=== PATIENT | female | born 1985 | race Caucasian/White ===

== ENCOUNTER 2017-06-08 19:30 | Inpatient (IN) | payer OTHER ==
[2017-06-08] MEDS ORDERED: AMPICILLIN - 2 GM in SODIUM CHLORIDE 100 ML IVPB ONE (20:30)
[2017-06-08] MEDS ORDERED: PROMETHAZINE HCL 25 MG/1 ML VIAL IVPUSH ONE (20:34)
[2017-06-08] MEDS ORDERED: BUTORPHANOL TARTRATE 1 MG/ML VIAL IVPUSH PRN (20:34)
[2017-06-08 20:38] VITALS: BMI 25.9
[2017-06-08] MEDS ORDERED: DEXTROSE 5%-LACTATED RINGERS 1,000 ML IV SCH (20:45)
[2017-06-08] MEDS ORDERED: OXYTOCIN 15 UNITS/ LR 250 ML 15 UNIT/250 ML INFUS.BAG IVPB SCH (20:45)
--- NOTE | 2017-06-08 20:47 | HP ---
Past Medical History - Primary Care Physician PCP:: Shaun Kisre - Admission Chief Complaint: 41 weeks, labor History of Present Illness: 32 yo f edc by sono 06/02. c/o contraction, mild , no rom, no bleeding , cx 3 cm 80 vx -2 mi, fhr cat 1, irregular contraction. in view irregular mild contraction ,pitocin discussed , rba expalined History Source: Patient Limitations to Obtaining History: Language Barrier - Past Medical History ...: 2 ...Para: 1 ...Term: 1 ...: 0 ... Weeks Gestation by Dates: 40.6 ...EDC by Dates: 06/02/17 ...EDC by Sono: 06/02/17 - Past Surgical History Hx Myomectomy: No Hx Transabdominal Cerclage: No - Smoking History Smoking history: Never smoked Have you smoked in the past 12 months: No - Alcohol/Substance Use Hx Alcohol Use: No - Social History Usual Living Arrangement: Yes: With Spouse History of Recent Travel: No Home Medications - Allergies Allergies/Adverse Reactions: Allergies Allergy/AdvReac Type Severity Reaction Status Date / Time No Known Allergies Allergy Verified 06/05/17 12:13 - Home Medications Home Medications: Ambulatory Orders Vitamins (Sjr) - 1 tab PO DAILY 11/11/13 Review of Systems - Review of Systems Constitutional: reports: No Symptoms Eyes: reports: No Symptoms HENT: reports: No Symptoms Neck: reports: No Symptoms Respiratory: reports: No Symptoms Gastrointestinal: reports: No Symptoms Genitourinary: reports: No Symptoms Breasts: reports: No Symptoms Reported Musculoskeletal: reports: No Symptoms Integumentary: reports: No Symptoms Neurological: reports: No Symptoms Endocrine: reports: No Symptoms Hematology/Lymphatic: reports: No Symptoms Psychiatric: reports: No Symptoms Physical Exam - Maternity Constitutional: Yes: Well Nourished, No Distress, Calm Eyes: Yes: WNL, Conjunctiva Clear, EOM Intact HENT: Yes: WNL, Atraumatic, Normocephalic Neck: Yes: WNL, Supple, Trachea Midline Cardiovascular: Yes: WNL, Regular Rate and Rhythm Breast(s): Yes: WNL - Abdominal Exam/OB Fundal Height: 40 Number of Fetuses: Single Presentation: Vertex Contractions: Yes Regularity: Irregular Intensity: Mild/Mod Monitor Mode: External Heart Rate Location: [facility] Category: I Accelerations: Uniform Decelerations: None - Vaginal Exam/OB Vaginal Bleediing: No Speculum Exam: No Dilatation (cm): 3 Effacement (%): 60 Amniotic Membrane Status: Intact Presentation: Vertex/Position Station: -2 - Physical Exam Musculoskeletal: Yes: WNL Extremities: Yes: WNL Edema: LLE: Trace, RLE: Trace Deep Tendon Reflex Grade: Normal +2 ...Motor Strength: WNL Psychiatric: Yes: Alert Hemorrhage Risk Assessment - Risk Factors Medium Risk Factors: Yes: None High Risk Factors: Yes: None Risk Score: 1 Risk Level: Medium Risk Problem List - Problems (1) Post term over 40 weeks Code(s): O48.0 - POST-TERM (2) Labor established Code(s): SCL0392 - Assessment/Plan admit, fhm, pitocin stimulation. pain management
[2017-06-08 21:49] LABS: BASOPHIL 0.6 % (0-2.0); EOSINOPHIL 0.5 % (0-4.5); MCH 26.4 pg (25.7-33.7); MCHC 32.2 g/dl (32.0-36.0); MEAN PLT VOLUME 10.1 fl (7.5-11.1); NEUTROPHILS 68.1 % (42.8-82.8); PLATELET COUNT 275 K/MM3 (134-434); RDW 17.5 % (11.6-15.6); WHITE BLOOD COUNT 10.7 K/mm3 (4.0-10.0)
[2017-06-08 21:57] LABS: INR 0.94 (0.82-1.09); PROTHROMBIN TIME (PATIENT) 10.6 SEC (9.98-11.88)
[2017-06-08 21:59] LABS: ACTIVATED PTT 26.9 SECONDS (26.9-34.4)
[2017-06-08 22:24] LABS: ANION GAP 12 (8-16); CALCIUM 8.9 mg/dL (8.5-10.1); CO2 22 mmol/L (21-32); CREATININE 0.7 mg/dL (0.55-1.02); GLUCOSE,RANDOM 99 mg/dL (74-106)
--- NOTE | 2017-06-08 23:04 | PN ---
Progress Note (short form) - Note Progress Note: cx 4 cm 80 vx -1 mi, fhr cat 1, contraction q 3 min Problem List - Problems (1) Post term over 40 weeks Code(s): O48.0 - POST-TERM (2) Labor established Code(s): CYA4077 -
[2017-06-09] MEDS: AMPICILLIN - 1 GM in SODIUM CHLORIDE 100 ML IVPB SCH ×6 (00:28→22:25)
[2017-06-09] MEDS ORDERED: OXYTOCIN 20 UNITS in 0.9% NS 1000 ML INFUS.BAG IV ONE (05:15)
[2017-06-09] MEDS ORDERED: METHYLERGONOVINE MALEATE 0.2 MG/1 ML AMP IM PRN (05:32)
[2017-06-09] MEDS ORDERED: oxyCODONE HCL 5 MG TABLET PO PRN (05:32)
[2017-06-09] MEDS ORDERED: BENZOCAINE 28 GM HEMORRHOIDAL OINTMENT TP PRN (05:32)
[2017-06-09] MEDS ORDERED: BISACODYL 10 MG SUPP.RECT RC PRN (05:32)
[2017-06-09] MEDS ORDERED: BENZOCAINE 20% 57 GM BOTTLE TP PRN (05:32)
[2017-06-09 05:42] LABS: ARTERIAL BLOOD GAS BASE EXCESS -3.4 meq/l (-2-2); ARTERIAL BLOOD GAS HCO3 25.4 meq/L (22-26); ARTERIAL BLOOD GAS pH 7.25 (7.35-7.45)
[2017-06-09] MEDS ORDERED: D5W-LR W/ 20 UNITS OXYTOCIN 20 UNIT/1,000 ML INFUS.BAG IV SCH (05:45)
[2017-06-09 05:49] LABS: PT. ON O2? NO
[2017-06-09 05:52] LABS: ARTERIAL BLOOD GAS PO2 14.4 mmHg (80-100)
[2017-06-09 05:53] LABS: ARTERIAL BLD GAS O2 SATURATION 14.8 % (90-98.9)
[2017-06-09 05:59] LABS: VENOUS PH 7.33 (7.32-7.42)
[2017-06-09 06:00] LABS: VENOUS BLOOD GAS HCO3 21.6 meq/L (19-25)
[2017-06-09] MEDS: IBUPROFEN 600 MG TABLET (FP) PO PRN ×2 (06:30→10:40)
[2017-06-09] MEDS: ACETAMINOPHEN 325 MG TABLET (FP) PO PRN ×2 (06:30→10:39)
[2017-06-09] MEDS ORDERED: OXYTOCIN 20 UNITS in 0.9% NS 20 UNIT/1,000 ML INFUS.BAG IV SCH (08:15)
[2017-06-09] MEDS: PRENATAL VITAMINS W/ FOLIC ACID TABLET (FP) PO SCH (09:51)
[2017-06-09] MEDS: FERROUS SO4 325 MG TABLET (FP) PO SCH ×2 (09:51→22:23)
[2017-06-09] MEDS: WITCH HAZEL 50% (TUCKS) 40 PAD/JAR PAD TP PRN (10:41)
[2017-06-10 08:26] LABS: EOSINOPHIL 0.7 % (0-4.5); MCH 26.1 pg (25.7-33.7); MCHC 31.6 g/dl (32.0-36.0); MEAN CELL VOLUME 82.6 fl (80-96); MEAN PLT VOLUME 9.8 fl (7.5-11.1); NEUTROPHILS 62.2 % (42.8-82.8); PLATELET COUNT 253 K/MM3 (134-434); RDW 17.6 % (11.6-15.6); WHITE BLOOD COUNT 14.2 K/mm3 (4.0-10.0)
[2017-06-10] MEDS: PRENATAL VITAMINS W/ FOLIC ACID TABLET (FP) PO SCH (09:19)
[2017-06-10] MEDS: FERROUS SO4 325 MG TABLET (FP) PO SCH ×2 (09:19→21:30)
[2017-06-10] MEDS: ACETAMINOPHEN 325 MG TABLET (FP) PO PRN (09:19)
[2017-06-10] MEDS: IBUPROFEN 600 MG TABLET (FP) PO PRN (09:19)
--- NOTE | 2017-06-10 09:51 | PN ---
Post Progress Note - Subjective Subjective: 32 yo Para 2 status post normal vaginal delivery seen and evaluated. Doing well, no complaints. Post Day: 1 Type of Delivery: Vital Signs: Vital Signs Temperature 98.9 F 06/10/17 08:18 Pulse Rate 66 06/10/17 08:18 Respiratory Rate 20 06/10/17 08:18 Blood Pressure 101/65 06/10/17 08:18 O2 Sat by Pulse Oximetry (%) 98 06/09/17 06:55 Breast Exam: Yes: Soft Uterus: Yes: Fundus Firm Abdomen/GI: Yes: Abdomen soft, Tolerating PO Lochia: Yes: Rubra Lochia, amount: Moderate Extremities: Yes: Calves non-tender Activity: Ambulating - Labs Labs: CBC WBC 14.2 K/mm3 (4.0-10.0) H D 06/10/17 07:45 RBC 4.11 M/mm3 (3.60-5.2) 06/10/17 07:45 Hgb 10.7 GM/dL (10.7-15.3) 06/10/17 07:45 Hct 33.9 % (32.4-45.2) 06/10/17 07:45 MCV 82.6 fl (80-96) 06/10/17 07:45 MCH 26.1 pg (25.7-33.7) 06/10/17 07:45 MCHC 31.6 g/dl (32.0-36.0) L 06/10/17 07:45 RDW 17.6 % (11.6-15.6) H 06/10/17 07:45 Plt Count 253 K/MM3 (134-434) 06/10/17 07:45 MPV 9.8 fl (7.5-11.1) 06/10/17 07:45 Neutrophils % 62.2 % (42.8-82.8) 06/10/17 07:45 Lymphocytes % 29.9 % (8-40) D 06/10/17 07:45 Monocytes % 6.2 % (3.8-10.2) 06/10/17 07:45 Eosinophils % 0.7 % (0-4.5) 06/10/17 07:45 Basophils % 1.0 % (0-2.0) 11/18/17 07:45 Assessment/Plan Status post vaginal delivery Stable Continue routine care
[2017-06-10] MEDS ORDERED: DIPHTH,PERTUSS(ACELL),TET 0.5 ML DISP.SYRIN IM ONE (10:00)
[2017-06-10] MEDS ORDERED: SENNOSIDES/DOCUSATE COMBO (SENNA PLUS) TABLET (UD) PO PRN (22:00)
[2017-06-11] MEDS: ACETAMINOPHEN 325 MG TABLET (FP) PO PRN (05:33)
[2017-06-11] MEDS: IBUPROFEN 600 MG TABLET (FP) PO PRN (05:34)
--- NOTE | 2017-06-11 06:13 | DS ---
Physical Exam-CONTACT CLERK Vital Signs: Vital Signs Temperature 98.1 F 06/10/17 22:00 Pulse Rate 70 06/10/17 22:00 Respiratory Rate 18 06/10/17 22:00 Blood Pressure 100/68 06/10/17 22:00 O2 Sat by Pulse Oximetry (%) 98 06/09/17 06:55 Constitutional: Yes: Well Nourished Eyes: Yes: Conjunctiva Clear HENT: Yes: Atraumatic Neck: Yes: Supple Cardiovascular: Yes: Regular Rate and Rhythm Respiratory: Yes: Regular Gastrointestinal: Yes: Normal Bowel Sounds External Genitalia: Yes: Normal Vaginal Exam: Yes: Normal Cervix: Yes: Normal Uterus: Yes: Firm ....Post : Yes: Uterus firm, Moderate lochia serosa Breast(s): Yes: WNL Neurological: Yes: Alert, Oriented ...Motor Strength: WNL Psychiatric: Yes: Alert, Oriented Labs: CBC, BMP 06/10/17 07:45 06/08/17 20:55 Delivery - Delivery Type of Anesthesia: Local Episiotomy/Laceration: Midline EBL (cc): 300 Delivery, Single - Stages of Labor Date 1st Stage Initiatied: 06/08/17 Time 1st Stage Initiated: 17:00 Date 2nd Stage Initiated: 06/09/17 Time 2nd Stage Initiated: 04:45 Date of Delivery: 06/09/17 Time of Delivery: 05:08 Time Placenta Delivered: 05:15 - 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 - 1 Minute Total Score: 8 5 Minutes Total Score: 9 - [place] Feeding Plan Initial Plan: Exclusive throughout hospitalization Discharge Summary Reason For Visit: INDUCTION OF LABOR Current Active Problems Labor established (Acute) Post term over 40 weeks (Acute) Procedures: Principal: Normal spontaneous vaginal delivery Hospital Course: Routine care Condition: Good - Instructions Diet, Activity, Other Instructions: Regular diet No douching, no sexual intercourse x 6 weeks F/U in clinic in 6 weeks Disposition: HOME - Home Medications Comprehensive Discharge Medication List: Ambulatory Orders Vitamins (Sjr) - 1 tab PO DAILY 11/11/13
[2017-06-11] MEDS: WITCH HAZEL 50% (TUCKS) 40 PAD/JAR PAD TP PRN (06:26)
[2017-06-11 08:16] VITALS: BP 94/50; PULSE 80; TEMP 97.8
[2017-06-11] MEDS: FERROUS SO4 325 MG TABLET (FP) PO SCH (09:30)
[2017-06-11] MEDS: PRENATAL VITAMINS W/ FOLIC ACID TABLET (FP) PO SCH (09:30)
== END 2017-06-11 14:00 | disposition home or self-care (01) | DRG 560 ==
LOC: JLDR 19:30 → J3W 06-09 08:18
PROVIDERS: ADMIT Obstetrics & Gynecology; ATTEND Obstetrics & Gynecology
PROC: 10E0XZZ Delivery of Products of Conception, External Approach (ICD-10-PCS; principal; 2017-06-09)
PROC: 0W8NXZZ Division of Female Perineum, External Approach (ICD-10-PCS; 2017-06-09)
DX: O48.0 Post-term pregnancy (principal); Z3A.40 40 weeks gestation of pregnancy; Z37.0 Single live birth
CPT/HCPCS: 36415; 36600; 59409; 80048; 82803; 85025; 85610; 85730; 86593; 86850; 86900; 86901; 90715

== ENCOUNTER 2018-10-15 21:28 | Emergency (ER) | payer OTHER ==
[2018-10-15 21:47] VITALS: BP 107/61; PULSE 73; TEMP 97.4; BMI 23.5
--- NOTE | 2018-10-15 23:12 | PDOC ---
Attending Attestation - HPI HPI: 10/15/18 23:17 The patient is a 33 YOF with no PMH who presents with a headache and 1 episode of NB, NB vomit today and right flank pain for the past week. Patient is unsure when her last LMP was, possibly in July. She does not know if she is . Allergies: NKDA Past Surgeries: None reported Social Hx: No reported alcohol, drug or cigarette use. PCP: Dr. Sales - Physicial Exam PE: 10/15/18 23:22 Agree with resident's exam. <Didi Martinez - Last Filed: 10/15/18 23:17> - Resident Resident Name: Marco Hassan - ED Attending Attestation I have performed the following: I have examined & evaluated the patient, The case was reviewed & discussed with the resident, I agree w/resident's findings & plan - Medical Decision Making 10/16/18 01:09 Live intrauterine confirmed with bedside ultrasound Patient was advised to stay for further testing, she states she feels fine and is signing out AGAINST MEDICAL ADVICE She was advised to stay for further imaging regarding gestation and flank pain as well as headache Hebrew translation was provided <Lizeth Grijalva - Last Filed: 10/16/18 01:11>
[2018-10-15] MEDS ORDERED: METOCLOPRAMIDE HCL INJECTION 10 MG/2 ML VIAL IVPUSH ONE (23:15)
[2018-10-15] MEDS ORDERED: METOCLOPRAMIDE HCL INJECTION 10 MG/2 ML VIAL ONE (23:37)
[2018-10-15 23:53] LABS: URINE APPEARANCE CLEAR; URINE BILIRUBIN NEGATIVE (NEGATIVE); URINE COLOR YELLOW; URINE GLUCOSE (UA) NEGATIVE (NEGATIVE); URINE KETONE 1+ (NEGATIVE); URINE LEUK ESTERASE NEGATIVE (NEGATIVE); URINE NITRITE NEGATIVE (NEGATIVE); URINE PROTEIN NEGATIVE (NEGATIVE)
[2018-10-15 23:55] LABS: BASO % 0.8 % (0-2.0); EOS % 0.8 % (0-4.5); HEMATOCRIT 39.7 % (32.4-45.2); HEMOGLOBIN 13.7 GM/dL (10.7-15.3); LYMPH % 23.8 % (8-40); MCH 29.4 pg (25.7-33.7); MCHC 34.4 g/dl (32.0-36.0); MEAN CELL VOLUME 85.3 fl (80-96); MEAN PLT VOLUME 9.2 fl (7.5-11.1); NEUT % 68.6 % (42.8-82.8); PLATELET COUNT 198 K/MM3 (134-434); RBC 4.65 M/mm3 (3.60-5.2); RDW 13.5 % (11.6-15.6); WHITE BLOOD COUNT 11.6 K/mm3 (4.0-10.0)
[2018-10-16 00:30] LABS: ALBUMIN 3.9 g/dl (3.4-5.0); ALK PHOS 55 U/L (45-117); ANION GAP 8 MMOL/L (8-16); BILIRUBIN,TOTAL 0.9 mg/dL (0.2-1); BLOOD UREA NITROGEN 11 mg/dL (7-18); CALCIUM 9.5 mg/dL (8.5-10.1); CHLORIDE 101 mmol/L (98-107); CO2 26 mmol/L (21-32); CREATININE 0.5 mg/dL (0.55-1.3); GLUCOSE,RANDOM 89 mg/dL (74-106); LIPASE 111 U/L (73-393); POTASSIUM 3.8 mmol/L (3.5-5.1); SGOT/AST 10 U/L (15-37); SGPT/ALT 24 U/L (13-61); SODIUM 135 mmol/L (136-145); TOT PROT 7.5 g/dl (6.4-8.2)
--- NOTE | 2018-10-16 01:16 | PDOC ---
History of Present Illness - General Chief Complaint: Headache Stated Complaint: HEADACHES Time Seen by Provider: 10/15/18 23:08 - History of Present Illness Initial Comments: 10/16/18 01:09 33f with no pmh G3L2 currently presents with left flank pain for the past week and headache today with multiple episode of vomiting. LMP unknown, "maybe July". No dysuria, no change in vision, no dizziness. 10/16/18 01:11 Hasn't seen a OBGYN due to not having insurance. Past History - Past Medical History Allergies/Adverse Reactions: Allergies Allergy/AdvReac Type Severity Reaction Status Date / Time No Known Allergies Allergy Verified 10/15/18 21:47 Home Medications: Ambulatory Orders Vitamins (Sjr) - 1 tab PO DAILY 11/11/13 Asthma: No Cancer: No Cardiac Disorders: No COPD: No Diabetes: No HTN: No Seizures: No Thyroid Disease: No - Suicide/Smoking/Psychosocial Hx Smoking History: Never smoked Have you smoked in the past 12 months: No Information on smoking cessation initiated: No Hx Alcohol Use: No Drug/Substance Use Hx: No Hx Substance Use Treatment: No Review of Systems - Review of Systems Able to Perform ROS?: Yes Is the patient limited Cymraes proficient: No Constitutional: No: Symptoms Reported HEENTM: No: Symptoms Reported Respiratory: No: Symptoms reported Cardiac (ROS): No: Symptoms Reported ABD/GI: Yes: See HPI : No: Symptoms Reported Musculoskeletal: No: Symptoms Reported *Physical Exam - Vital Signs Last Vital Signs Temp Pulse Resp BP Pulse Ox 97.4 F L 73 18 107/61 100 10/15/18 21:44 10/15/18 21:44 10/15/18 21:44 10/15/18 21:44 10/15/18 21:44 - Physical Exam General Appearance: Yes: Nourished, Appropriately Dressed. No: Apparent Distress HEENT: positive: EOMI, RAJAN Respiratory/Chest: positive: Lungs Clear, Normal Breath Sounds. negative: Chest Tender, Respiratory Distress Cardiovascular: positive: Regular Rhythm, Regular Rate, S1, S2 Gastrointestinal/Abdominal: positive: Normal Bowel Sounds, Flat, Soft. negative : Tender Musculoskeletal: positive: Normal Inspection. negative: CVA Tenderness Extremity: positive: Normal Capillary Refill, Normal Inspection, Normal Range of Motion Integumentary: positive: Normal Color, Dry, Warm ED Treatment Course - LABORATORY CBC & Chemistry Diagram: 10/15/18 23:40 10/15/18 23:40 - ADDITIONAL ORDERS Additional order review: Laboratory Results 10/15/18 10/15/18 10/15/18 23:40 23:40 23:40 Sodium 135 L Potassium 3.8 Chloride 101 Carbon Dioxide 26 Anion Gap 8 BUN 11 Creatinine 0.5 L Creat Clearance w eGFR 142.98 Random Glucose 89 Calcium 9.5 Total Bilirubin 0.9 AST 10 L ALT 24 Alkaline Phosphatase 55 Total Protein 7.5 Albumin 3.9 Lipase 111 Serum , Qual Positive Urine Color Yellow Urine Appearance Clear Urine pH 5.0 Ur Specific [place] 1.031 Urine Protein Negative Urine Glucose (UA) Negative Urine Ketones 1+ H Urine Blood Negative Urine Nitrite Negative Urine Bilirubin Negative Urine Urobilinogen 1.0 Ur Leukocyte Esterase Negative 10/15/18 23:40 RBC 4.65 MCV 85.3 MCHC 34.4 RDW 13.5 D MPV 9.2 Neutrophils % 68.6 Lymphocytes % 23.8 D Monocytes % 6.0 Eosinophils % 0.8 Basophils % 0.8 - Medications Given in the ED: ED Medications Discontinued Medications Generic Name Dose Route Start Last Admin Trade Name Freq PRN Reason Stop Dose Admin Metoclopramide HCl 10 mg 10/15/18 23:15 10/15/18 23:50 Reglan Injection - IVPUSH 10/15/18 23:16 10 mg ONCE ONE Administration Medical Decision Making - Medical Decision Making 10/16/18 01:16 PAtient claiming to be asymptomatic now,. abdominal US: positive intrauterine . All other labs negative. Patient requesting to leave AMA. Coppersmith Helper used to let patient known of the risks. Wishes to leave and see her own obgyn herself. 10/16/18 01:32 10/16/18 01:32 *DC/Admit/Observation/Transfer Diagnosis at time of Disposition: Headache, - Discharge Dispostion Disposition: AGAINST MEDICAL ADVICE - Referrals Referrals: Florecita Sales CNM [Primary Care Provider] - - Patient Instructions - Post Discharge Activity
--- NOTE | 2018-10-16 09:19 | EKG ---
Test Reason : Blood Pressure : / mmHG Vent. Rate : 079 BPM Atrial Rate : 079 BPM P-R Int : 140 ms QRS Dur : 080 ms QT Int : 376 ms P-R-T Axes : 025 038 041 degrees QTc Int : 431 ms NORMAL SINUS RHYTHM WITH SINUS ARRHYTHMIA NORMAL ECG NO PREVIOUS ECGS AVAILABLE Confirmed by EHSAN JENNINGS MD ([id number]) on 10/16/2018 9:18:53 AM Referred By: Confirmed By:EHSAN JENNINGS MD
== END 2018-10-16 01:10 | disposition left against medical advice (07) ==
LOC: JER 21:28
PROC: 3E033GC Introduction of Other Therapeutic Substance into Peripheral Vein, Percutaneous Approach (ICD-10-PCS; principal; 2018-10-15)
DX: O26.899 Other specified pregnancy related conditions, unspecified trimester (principal); R51 Headache; Z3A.00 Weeks of gestation of pregnancy not specified
CPT/HCPCS: 36415; 80053; 81003; 83690; 84703; 85025; 93005; 93010; 96374; 99282-25

== ENCOUNTER 2019-05-24 17:10 | Inpatient (IN) | payer OTHER ==
[2019-05-24] MEDS ORDERED: ELECTROLYTE-148 SOLN 1,000 ML IV SCH (18:45)
--- NOTE | 2019-05-24 19:52 | HP ---
Past Medical History - Admission Chief Complaint: Uterine contractions History of Present Illness: 34yo @ 39.4wks here with uterine contractions. +ctx. No VB/LOF. +FM PNC @ [address] uncomplicated, GBS neg History Source: Patient Limitations to Obtaining History: No Limitations - Past Medical History ...: 3 ...Para: 2 ...Term: 1 ...: 1 ...LMP: 08/20/18 ... Weeks Gestation by Dates: 39.4 ...EDC by Dates: 05/27/19 ...EDC by Sono: 05/29/19 Heme/Onc: Yes: Anemia Infectious Disease: No: AIDS, C-Diff, Herpes Zoster, HIV, MRSA, STD's, Tuberculosis, VREF, Other Psych: No: Addictions, Anxiety, Bipolar, Depression, Panic, Psychosis, Schizophrenia, Other Musculoskeletal: No: Bursitis, Chronic low back pain, Hemiparesis, Hemiplegia, Osteoarthritis, Paraplegia, Other Rheumatology: No: Fibromyalgia, Gout, Lupus, Rheumatoid Arthritis, Sarcoidosis, Vasculitis, Other ENT: No: Allergic Rhinitis, Sinusitis, Other Endocrine: No: Felipe's Disease, Serena's Disease, Diabetes Insipidus, Diabetes Mellitus, Hyperparathyroidism, Hyperthyroidism, Hypothyroidism, Osteopenia, SIADH, Other Dermatology: No: Basal Cell, Cellulitis, Eczema, Melanoma, Psoriasis, Squamous Cell, Other - Past Surgical History Past Surgical History: Yes: None Hx Myomectomy: No Hx Transabdominal Cerclage: No - Smoking History Smoking history: Never smoked Have you smoked in the past 12 months: No - Alcohol/Substance Use Hx Alcohol Use: No History of Substance Use: reports: None - Social History Usual Living Arrangement: Yes: With Spouse Do you think of yourself as: Straight/Heterosexual ADL: Independent History of Recent Travel: No Home Medications - Allergies Allergies/Adverse Reactions: Allergies Allergy/AdvReac Type Severity Reaction Status Date / Time No Known Allergies Allergy Verified 10/15/18 21:47 - Home Medications Home Medications: Ambulatory Orders Vitamins (Sjr) - 1 tab PO DAILY 11/11/13 Iron 1 tab PO DAILY 05/24/19 Review of Systems - Review of Systems Constitutional: denies: No Symptoms, Chills, Diaphoresis, Fever, Lethargy, Loss of Appetite, Malaise, Night Sweats, Unintentional Wgt. Loss, Weakness, Other Cardiovascular: denies: No Symptoms, Chest Pain, Edema, Palpitations, Shortness of Breath, Other Respiratory: denies: No Symptoms, Cough, Exercise Intolerance, Hemoptysis, Orthopnea, PND, Snoring, SOB, SOB on Exertion, Wheezing, Other Gastrointestinal: denies: No Symptoms, Abdominal Pain, Bloating, Constipation, Diarrhea, Dysphagia, Indigestion, Melena, Nausea, Rectal Bleeding, Vomiting, Vomiting Blood, Other Physical Exam - Maternity Vital Signs: Vital Signs Temperature 97.9 F 05/24/19 18:10 Pulse Rate 80 05/24/19 18:10 Respiratory Rate 20 05/24/19 18:10 Blood Pressure 112/60 05/24/19 18:10 O2 Sat by Pulse Oximetry (%) - Abdominal Exam/OB Number of Fetuses: Single Presentation: Vertex Contractions: Yes Regularity: Regular Intensity: Mild Monitor Mode: External Category: I Accelerations: Non-Uniform Decelerations: None - Vaginal Exam/OB Vaginal Bleediing: No Speculum Exam: No Dilatation (cm): 6 Effacement (%): 60 Amniotic Membrane Status: Intact Presentation: Vertex/Position Station: -3 - Physical Exam Edema: No Imaging - Results Ultrasound: Report Reviewed Problem List - Problems (1) Uterine contractions Code(s): ZEL3544 - Assessment/Plan 34yo @ 39.4wks here in labor Admit to L&D NPO, IVFs GBS negative AROM/pitocin prn Cat I tracing Anticipate MARTINEZ Pimentel MD
--- NOTE | 2019-05-24 19:53 | PN ---
Progress Note, Labor Vaginal Exam #1 Labor Exam Date: 05/24/19 Labor Exam Time: 19:52 Heart Rate (range): Cat I Dilatation: 7-8 Effacement (%): 70 Amniotic Membrane Status: Intact Presentation: Vertex/Position Station: -3 Remarks: Pt still comfortable with contractions AROM, clears Cat I tracing Anticipate MARTINEZ Pimentel
[2019-05-24 20:23] VITALS: BMI 24.4
[2019-05-24 20:41] LABS: BASO % 0.6 % (0-2.0); EOS % 0.4 % (0-4.5); HEMATOCRIT 34.1 % (32.4-45.2); HEMOGLOBIN 11.4 GM/dL (10.7-15.3); LYMPH % 19.7 % (8-40); MCH 29.5 pg (25.7-33.7); MCHC 33.4 g/dl (32.0-36.0); MEAN CELL VOLUME 88.3 fl (80-96); MEAN PLT VOLUME 9.8 fl (7.5-11.1); MONO % 6.8 % (3.8-10.2); NEUT % 72.5 % (42.8-82.8); PLATELET COUNT 301 K/MM3 (134-434); RBC 3.86 M/mm3 (3.60-5.2); RDW 13.3 % (11.6-15.6); WHITE BLOOD COUNT 15.1 K/mm3 (4.0-10.0)
[2019-05-24] MEDS ORDERED: DEXTROSE 5%-LACTATED RINGERS 1,000 ML IV SCH (20:45)
[2019-05-24 20:50] LABS: INR 1.01 (0.83-1.09); PROTHROMBIN TIME (PATIENT) 11.9 SEC (9.7-13.0)
[2019-05-24 20:53] LABS: ACTIVATED PTT 26.9 SECONDS (25.2-36.5)
--- NOTE | 2019-05-24 20:54 | PN ---
Progress Note, Labor Vaginal Exam #2 Labor Exam Date: 05/24/19 Labor Exam Time: 20:54 Heart Rate (range): Cat I Dilatation: 9.5 Effacement (%): 100 Amniotic Membrane Status: Ruptured Station: -1 Remarks: Pt getting more uncomfortable Anterior Lip Will start pushing soon Anticipate MARTINEZ Pimentel MD
[2019-05-24 21:04] LABS: BLOOD UREA NITROGEN 12.2 mg/dL (7-18); CALCIUM 9.1 mg/dL (8.5-10.1); CREATININE 0.7 mg/dL (0.55-1.3); POTASSIUM 3.7 mmol/L (3.5-5.1)
[2019-05-24] MEDS ORDERED: OXYTOCIN 20 UNITS in 0.9% NS 20 UNIT/1,000 ML INFUS.BAG IV ONE (21:27)
[2019-05-24] MEDS ORDERED: LIDOCAINE HCL 1% PRESERVATIVE FREE - 30ML VIAL ONE (21:28)
[2019-05-24] MEDS: OXYTOCIN 20 UNITS in 0.9% NS 20 UNIT/1,000 ML INFUS.BAG IV SCH (21:50)
[2019-05-24] MEDS ORDERED: BENZOCAINE 28 GM HEMORRHOIDAL OINTMENT TP PRN (21:58)
[2019-05-24] MEDS ORDERED: METHYLERGONOVINE MALEATE 0.2 MG/1 ML AMP IM PRN (21:58)
[2019-05-24] MEDS ORDERED: BISACODYL 10 MG SUPP.RECT RC PRN (21:58)
[2019-05-24] MEDS ORDERED: BENZOCAINE 20% 57 GM BOTTLE TP PRN (21:58)
[2019-05-24] MEDS ORDERED: WITCH HAZEL 50% (TUCKS) 40 PAD/JAR PAD TP PRN (21:58)
--- NOTE | 2019-05-24 21:58 | PN ---
Delivery - Delivery Vaginal Delivery: Spontaneous Type of Anesthesia: Local Episiotomy/Laceration: Midline, 1st degree EBL (cc): 250 Delivery, Single - Stages of Labor Placenta: Yes: Spontaneous - Condition of Practice Director/Operator Catalyst Concentration Present: No Gender: Female Position: Left, OA - 1 Minute Total Score: 9 5 Minutes Total Score: 9 - Feeding Plan Initial Plan: Elected not to breastfeed exclusively throughout hospitalization Remarks - Remarks Remarks: of VFI from LOS position over intact perineum. No anesthesia. 39 week . Spontaneous delivery of anterior shoulder and body. placed on maternal abdomen. Cord clamped and cut. Weight pending to allow sufficient skin to skin. Apgars 9/9. Spontaneous delivery of intact placenta, 3VC. Fundus firm. Perineum inspected, first degree laceration noted. Lidocaine injected for anesthesia, repaired with 2-0 chromic. EBL 250ml. Mother and baby doing well. Velma Pimentel MD
[2019-05-24] MEDS ORDERED: IBUPROFEN 600 MG TABLET (FP) PO ONE (22:45)
[2019-05-24] MEDS: IBUPROFEN 600 MG TABLET (FP) PO PRN (22:46)
[2019-05-25] MEDS: OXYTOCIN 20 UNITS in 0.9% NS 20 UNIT/1,000 ML INFUS.BAG IV SCH (00:30)
[2019-05-25] MEDS ORDERED: OXYTOCIN 20 UNITS in 0.9% NS 20 UNIT/1,000 ML INFUS.BAG IV ONE (00:51)
[2019-05-25 08:16] LABS: BASO % 0.5 % (0-2.0); EOS % 0.5 % (0-4.5); HEMATOCRIT 32.1 % (32.4-45.2); HEMOGLOBIN 10.7 GM/dL (10.7-15.3); LYMPH % 21.1 % (8-40); MCH 29.6 pg (25.7-33.7); MCHC 33.3 g/dl (32.0-36.0); MEAN CELL VOLUME 88.9 fl (80-96); MEAN PLT VOLUME 10.1 fl (7.5-11.1); NEUT % 70.9 % (42.8-82.8); PLATELET COUNT 275 K/MM3 (134-434); RBC 3.61 M/mm3 (3.60-5.2); RDW 13.6 % (11.6-15.6); WHITE BLOOD COUNT 14.2 K/mm3 (4.0-10.0)
[2019-05-25] MEDS: PRENATAL VITAMINS W/ FOLIC ACID TABLET (FP) PO SCH (10:45)
--- NOTE | 2019-05-25 11:50 | PN ---
Post Progress Note - Subjective Subjective: Pain controlled. Lochia < menses. . No fevers/chills. Ambulating Post Day: 1 Type of Delivery: Vital Signs: Vital Signs Temperature 97.8 F 05/25/19 10:16 Pulse Rate 63 05/25/19 10:16 Respiratory Rate 20 05/25/19 10:16 Blood Pressure 86/60 L 05/25/19 10:16 O2 Sat by Pulse Oximetry (%) Uterus: Yes: Fundus below umbilicus Abdomen/GI: Yes: Abdomen soft, Passing flatus, Tolerating PO Lochia: Yes: Rubra Lochia, amount: Small Extremities: Yes: Calves non-tender Perineum: Yes: Laceration Activity: Ambulating - Labs Labs: CBC WBC 14.2 K/mm3 (4.0-10.0) H 05/25/19 07:10 RBC 3.61 M/mm3 (3.60-5.2) 05/25/19 07:10 Hgb 10.7 GM/dL (10.7-15.3) 05/25/19 07:10 Hct 32.1 % (32.4-45.2) L 05/25/19 07:10 MCV 88.9 fl (80-96) 05/25/19 07:10 MCH 29.6 pg (25.7-33.7) 05/25/19 07:10 MCHC 33.3 g/dl (32.0-36.0) 05/25/19 07:10 RDW 13.6 % (11.6-15.6) 05/25/19 07:10 Plt Count 275 K/MM3 (134-434) 05/25/19 07:10 MPV 10.1 fl (7.5-11.1) 05/25/19 07:10 Absolute Neuts (auto) 10.0 K/mm3 (1.5-8.0) H 05/25/19 07:10 Neutrophils % 70.9 % (42.8-82.8) 05/25/19 07:10 Lymphocytes % 21.1 % (8-40) 05/25/19 07:10 Monocytes % 7.0 % (3.8-10.2) 05/25/19 07:10 Eosinophils % 0.5 % (0-4.5) 05/25/19 07:10 Basophils % 0.5 % (0-2.0) 05/25/19 07:10 Nucleated RBC % 0 % (0-0) 05/25/19 07:10 Problem List - Problems (1) Uterine contractions Code(s): FAN2896 - Assessment/Plan 34yo s/p , PPD#1 Routine PP care PO pain control Labs reviewed D/C to home PPD#2 Erasto Pimentel MD
[2019-05-25] MEDS: ACETAMINOPHEN 325 MG TABLET (FP) PO PRN (15:57)
[2019-05-25] MEDS: IBUPROFEN 600 MG TABLET (FP) PO PRN (15:58)
[2019-05-25] MEDS ORDERED: SENNOSIDES/DOCUSATE COMBO (SENNA PLUS) TABLET (UD) PO PRN (22:00)
[2019-05-26] MEDS: IBUPROFEN 600 MG TABLET (FP) PO PRN ×2 (02:28→10:11)
[2019-05-26] MEDS: ACETAMINOPHEN 325 MG TABLET (FP) PO PRN ×2 (02:29→10:12)
[2019-05-26 09:19] VITALS: BP 130/62; PULSE 52; TEMP 97.7
[2019-05-26] MEDS: PRENATAL VITAMINS W/ FOLIC ACID TABLET (FP) PO SCH (10:11)
--- NOTE | 2019-05-26 10:49 | DS ---
Physical Examination Vital Signs: Vital Signs Temperature 97.7 F 05/26/19 09:14 Pulse Rate 52 L 05/26/19 09:14 Respiratory Rate 18 05/26/19 09:14 Blood Pressure 130/62 05/26/19 09:14 O2 Sat by Pulse Oximetry (%) Constitutional: Yes: Well Nourished, No Distress, Calm Eyes: Yes: WNL, Conjunctiva Clear, EOM Intact HENT: Yes: WNL, Atraumatic, Normocephalic Neck: Yes: WNL, Supple, Trachea Midline Cardiovascular: Yes: WNL, Regular Rate and Rhythm Respiratory: Yes: WNL, Regular, CTA Bilaterally Gastrointestinal: Yes: WNL, Normal Bowel Sounds Musculoskeletal: Yes: WNL Extremities: Yes: WNL Edema: No Integumentary: Yes: WNL Neurological: Yes: WNL, Alert, Oriented ...Motor Strength: WNL Psychiatric: Yes: WNL Labs: CBC, BMP 05/25/19 07:10 05/24/19 20:00 Discharge Summary Problems reviewed: Yes Reason For Visit: LABOR ADMIT Current Active Problems Uterine contractions (Acute) Procedures: Principal: Hospital Course: Patient presented in labor She had an uncomplicated She met all milestones She was discharged home on PPD#2 Health Concerns: None Condition: Stable - Instructions Diet, Activity, Other Instructions: Regular Diet Follow up in 4-6 weeks for your visit Referrals: Velma Pimentel MD [Staff Physician] - Disposition: HOME - Home Medications Comprehensive Discharge Medication List: Ambulatory Orders Vitamins (Sjr) - 1 tab PO DAILY 11/11/13 Iron 1 tab PO DAILY 05/24/19 Ibuprofen 600 mg PO Q6H PRN #30 tablet 05/25/19
== END 2019-05-26 12:40 | disposition home or self-care (01) | DRG 560 ==
LOC: JDEL 17:10 → JLDR 19:00 → J3W 05-25 09:50
PROVIDERS: ADMIT Obstetrics & Gynecology; ATTEND Obstetrics & Gynecology
PROC: 10E0XZZ Delivery of Products of Conception, External Approach (ICD-10-PCS; principal; 2019-05-24)
PROC: 0HQ9XZZ Repair Perineum Skin, External Approach (ICD-10-PCS; 2019-05-24)
DX: O70.0 First degree perineal laceration during delivery (principal); Z3A.39 39 weeks gestation of pregnancy; Z37.0 Single live birth
CPT/HCPCS: 36415; 59409; 80048; 85025; 85610; 85730; 86593; 86850; 86900; 86901

== ENCOUNTER 2022-12-29 17:14 | Emergency (ER) | payer OTHER ==
[2022-12-29 17:21] VITALS: BP 106/57; PULSE 72; RESP 17; TEMP 98; BMI 23.1
[2022-12-29] MEDS ORDERED: ACETAMINOPHEN 500 MG TABLET (FP) PO ONE (18:12)
[2022-12-29] MEDS ORDERED: LIDOCAINE 5% TOPICAL PATCH TP ONE (18:12)
[2022-12-29] MEDS ORDERED: LIDOCAINE 5% TOPICAL PATCH ONE (18:29)
[2022-12-29] MEDS ORDERED: ACETAMINOPHEN 500 MG TABLET (FP) ONE (18:29)
[2022-12-29 19:13] LABS: EPI CELLS 7 /uL (0-25.1); HCG,QUALITATIVE URINE Negative; HYALINE CASTS 0 /uL (0-3.1); PH,URINE 5.5 (5.0-8.0); URINE APPEARANCE CLEAR; URINE BACTERIA 66 /uL (0-1359); URINE BILIRUBIN NEGATIVE (NEGATIVE); URINE COLOR YELLOW; URINE GLUCOSE (UA) NEGATIVE (NEGATIVE); URINE KETONE NEGATIVE (NEGATIVE); URINE LEUK ESTERASE TRACE (NEGATIVE); URINE NITRITE NEGATIVE (NEGATIVE); URINE PROTEIN NEGATIVE (NEGATIVE); URINE RBC 8 /uL (0-23.9); URINE UROBILINOGEN 0.2 mg/dL (0.2-1.0); URINE WBC 16 /uL (0-25.8)
[2022-12-29 19:39] LABS: BASO % 1.1 % (0-2.0); EOS % 2.4 % (0-4.5); HEMATOCRIT 36.9 % (32.4-45.2); HEMOGLOBIN 12.4 GM/dL (10.7-15.3); LYMPH % 34.9 % (8-40); MCH 27.1 pg (25.7-33.7); MCHC 33.7 g/dl (32.0-36.0); MEAN CELL VOLUME 80.4 fl (80-96); MEAN PLT VOLUME 8.7 fl (7.5-11.1); MONO % 7.2 % (3.8-10.2); NEUT % 54.4 % (42.8-82.8); PLATELET COUNT 228 10^3/uL (134-434); RBC 4.59 M/mm3 (3.60-5.2); RDW 14.3 % (11.6-15.6); WHITE BLOOD COUNT 7.4 K/mm3 (4.0-10.0)
[2022-12-29 19:58] LABS: POTASSIUM 4.1 mmol/L (3.5-5.1)
[2022-12-29 20:00] LABS: CALCIUM 9.9 mg/dL (8.5-10.1)
[2022-12-29 20:01] LABS: ALBUMIN 3.8 g/dl (3.4-5.0); BLOOD UREA NITROGEN 12.4 mg/dL (7-18)
[2022-12-29 20:04] LABS: CREATININE 0.8 mg/dL (0.55-1.3)
[2022-12-29 20:05] LABS: BILIRUBIN,TOTAL 0.6 mg/dL (0.2-1)
[2022-12-29] MEDS ORDERED: LIDOCAINE PATCH REMOVAL MC SCH (22:00)
== END 2022-12-29 23:08 | disposition home or self-care (01) ==
LOC: JER 17:14
DX: M54.50 Low back pain, unspecified (principal); R10.9 Unspecified abdominal pain
CPT/HCPCS: 36415; 74176-TC; 80053; 81003; 84703; 85025; 99284-25